=== PATIENT | male | born 1965 | race Caucasian/White ===

== ENCOUNTER → 2017-01-20 | Outpatient (CLI) | payer MEDICARE, OTHER ==
--- NOTE | 2017-01-20 14:14 | XR ---
Lumbar spine HISTORY: Low back pain 3 views of the lumbar spine Lumbar vertebral bodies show preserved height, alignment, and bone mineralization. There is mild mult ilevel spondylosis. Loss of disc height at L5-S1. Prevertebral soft tissues are normal. IMPRESSION: Degenerative disc disease. Consider lumbar MRI
== END | disposition home or self-care (01) ==
LOC: RADXRMAIN 10:40
PROVIDERS: ATTEND Family Medicine
DX: M51.36 Other intervertebral disc degeneration, lumbar region (principal)
CPT/HCPCS: 72100

== ENCOUNTER → 2017-02-02 | Outpatient (CLI) | payer MEDICARE, OTHER ==
--- NOTE | 2017-02-02 11:03 | MR ---
EXAMINATION TYPE: MR lumbar spine wo con DATE OF EXAM: 02/02/2017 8:57 AM COMPARISON: NONE HISTORY: 51-year-old male with low back pain. TECHNIQUE: Multiplanar, multisequence images of the lumbar spine were acquired. Findings: Vertebral body heights are preserved and alignment is maintained. Variable mild disc desiccation. Overall disc interspaces are maintained. There is some fatty marrow M odic type II endplate changes anteriorly at T11-T12 and L2-L4. Minimal bulging discs in the mid to lower lumbar spine with a right intraforaminal annular fissure no rodger at both L4-L5 and L5-S1. Facet degenerative change lower lumbar spine. No suspicious bone marrow replacement. Conus medullaris is normal. At T12-L1, no spinal canal or foraminal stenosis. At L1-L2, no spinal canal or foraminal stenosis. At L2-L3, no significant spinal canal or foraminal stenosis. At L3-L4, mild disc bulge without significant spinal canal or neuroforaminal stenosis. At L4-L5, mild disc bulge and mild facet degenerative change. There is a right sided intraforaminal a nnular fissure. The exiting right L4 nerve root closely approaches the disc here. No significant spin al canal or neuroforaminal stenosis. At L5-S1, mild diffuse disc bulge and mild facet degenerative change. There is a right intraforaminal annular fissure which closely approaches the traversing right S1 nerve root, sagittal image 9. No si gnificant spinal canal or neuroforaminal stenosis. Prominent parapelvic cysts within the left greater than right kidneys. No prevertebral or paravertebr al soft tissue abnormal body. IMPRESSION: 1. Mild multilevel degenerative disc disease. There are minimal bulging discs in the mid to lower lum bar spine without focal disc herniation. 2. Right intraforaminal annular fissures at L4-L5 and L5-S1. At L4-L5, this closely approaches the ex iting L4 nerve root. At L5-S1, this closely approaches the traversing right S1 nerve root. 3. No significant spinal canal or neuroforaminal stenosis.
== END | disposition home or self-care (01) ==
LOC: RADMRIMAIN 08:17
PROVIDERS: ATTEND Family Medicine
DX: M51.26 Other intervertebral disc displacement, lumbar region (principal); M51.36 Other intervertebral disc degeneration, lumbar region
CPT/HCPCS: 72148

== ENCOUNTER → 2017-11-02 | Outpatient (CLI) | payer MEDICARE, OTHER ==
--- NOTE | 2017-11-08 21:38 | HM ---
HOLTER MONITOR REPORT The patient was monitored for 24 hours. The baseline rhythm is a sinus mechanism with normal conduction. The average is 63 beats per minute, minimum 44, maximum 112 beats per minute. Ventricular ectopic activity was not present. Supraventricular ectopic activity was present in the form of rare single PVCs. No symptoms were reported. CONCLUSION: 1. Sinus mechanism based on rhythm. 2. Rare supraventricular ectopic activity. 3. Normal ventricular ectopic activity. 4. No symptoms were reported. MMODL / IJN: [id number] /
== END | disposition home or self-care (01) ==
LOC: RADECHMAIN 12:47
PROVIDERS: ATTEND Family Medicine
DX: R00.2 Palpitations (principal)
CPT/HCPCS: 93225; 93226